=== PATIENT | male | born 1945 | race Caucasian/White ===

== ENCOUNTER 2018-11-27 09:49 | Day surgery (SDC) | payer BC, MEDICARE ==
[2018-11-23 15:51] VITALS: BMI 26.5
--- NOTE | 2018-11-26 09:18 | P.GSHP ---
History of Present Illness H&P Date: 11/27/18 CHIEF COMPLAINT: GERD HISTORY OF PRESENT ILLNESS: The patient is a 73-year-old male who presents reports gastroesophageal reflux disease. Upper endoscopy was offered for further evaluation and management. PAST MEDICAL HISTORY: Please see list. PAST SURGICAL HISTORY: Please see list. MEDICATIONS: Please see list. ALLERGIES: Please see list. SOCIAL HISTORY: No illicit drug use FAMILY HISTORY: No reports of Crohn disease or ulcerative colitis. REVIEW OF ORGAN SYSTEMS: CONSTITUTIONAL: No reports of fevers or chills. GI: Denies any blood in stools or constipation. PHYSICAL EXAM: VITAL SIGNS: Stable GENERAL: Well-developed and pleasant in no acute distress. HEENT: No scleral icterus. Extraocular movements grossly intact. Moist buccal mucosa. NECK: Supple without lymphadenopathy. CHEST: Unlabored respirations. Equal bilateral excursions. CARDIOVASCULAR: Regular rate and rhythm. Distal 2+ pulses. ABDOMEN: Soft, nondistended. MUSCULOSKELETAL: No clubbing, cyanosis, or edema. ASSESSMENT: 1. Gastroesophageal reflux disease PLAN: 1. Recommend proceeding with an upper endoscopy Past Medical History Past Medical History: No Reported History History of Any Multi-Drug Resistant Organisms: None Reported Past Surgical History: Hernia Repair Additional Past Surgical History / Comment(s): LEFT KNEE SURGERY, CATARACT SURGERY WITH IMPLANTS WITH IMPLANTS Past Anesthesia/Blood Transfusion Reactions: No Reported Reaction Smoking Status: Never smoker - Past Family History Mother Family Medical History: No Reported History Medications and Allergies Home Medications Medication Instructions Recorded Confirmed Type No Known Home Medications 11/23/18 11/23/18 History Allergies Allergy/AdvReac Type Severity Reaction Status Date / Time No Known Allergies Allergy Verified 11/23/18 15:38
[~2018-11-27 09:49] MED LIST: LACTATED RINGERS 1,000 ML IV SCH; LIDOCAINE 1% 20 ML VIAL (10MG/ML) FOR IV START INTRADERMA PRN
[2018-11-27 11:00] VITALS: RESP 16; TEMP 98
[2018-11-27] MEDS ORDERED: LIDOCAINE 1% INJ 10MG/ML (20 ML MDV) ONE (11:38)
[2018-11-27] MEDS ORDERED: PROPOFOL 10 MG/ML 20 ML VIAL IV ONE (11:38)
--- NOTE | 2018-11-27 12:13 | P.PCN ---
Date of Procedure: 11/27/18 Description of Procedure: PREOPERATIVE DIAGNOSIS: Colonoscopy screening, first Family history colon cancer, father POSTOPERATIVE DIAGNOSIS: Colonoscopy screening, first Family history colon cancer, father Severe sigmoid diverticulosis with stricture Tubular adenoma, sigmoid colon OPERATION: Colonoscopy to the ileocecal valve and appendiceal orifice. Colonoscopy with hot snare polypectomy SURGEON: Genie Herrmann MD. ANESTHESIA: MAC. INDICATIONS: The patient is a 73-year-old male who presents for his first colonoscopy screening. Benefits and risks were described and informed consent was obtained. DESCRIPTION OF PROCEDURE: The patient had undergone Gatorade, MiraLAX and Dulcolax prep. He had been brought into the operating room and laid in the left lateral decubitus position. After adequate intravenous sedation, the rectum was examined with 2% lidocaine jelly. No external hemorrhoids were encountered. The rectal tone was within normal limits. No lesions were palpated in the rectal vault. An Olympus colonoscope was advanced until the ileocecal valve and appendiceal orifice were clearly viewed. The prep was fair with visualization of the mucosal folds. The scope was removed with visualization of each mucosal fold. Severe scattered diverticulosis was encountered with stricture between 20 and 30 cm from the anal verge. At sigmoid colon, 4 mm colonic polyp was found and snare polypectomy. No evidence of focal colitis was found. Retroflexion of the scope demonstrated no internal hemorrhoids without active bleeding or inflammation. The colon was desufflated. The patient had tolerated the procedure well. Withdrawal time was over 6 minutes. FINDINGS: Aronchick preparation quality scale 2 (1-5) No internal hemorrhoids No external hemorrhoids No arteriovenous malformations Severe scattered diverticulosis was encountered with stricture between 20 and 30 cm from the anal verge Removal of 1 polyp: - Snare polypectomy 30 cm from the anal verge, 4 mm tubulovillous adenoma polyp, sigmoid colon No focal colitis. RECOMMENDATIONS: Recommend repeat colonoscopy in 3 years, 2021 for personal and familial risk history of colon cancer Plan - Discharge Summary Discharge Rx Participant: No New Discharge Prescriptions: No Action No Known Home Medications Discharge Medication List No Known Home Medications 11/23/18 [History] Follow up Appointment(s)/Referral(s): Genie Herrmann MD [STAFF PHYSICIAN] - 12/26/18 Patient Instructions/Handouts: Diverticulosis (DC), Colorectal Polyps (DC), Diverticulosis Diet (GEN) Activity/Diet/Wound Care/Special Instructions: Repeat colonoscopy 3 years, 2021 Discharge Disposition: HOME SELF-CARE
[2018-11-27 12:35] VITALS: BP 158/87; PULSE 55
== END 2018-11-27 12:45 | disposition home or self-care (01) ==
LOC: ORWHC2ENDO 09:49
PROVIDERS: ATTEND Surgery Plastic and Reconstructive Surgery
DX: Z12.11 Encounter for screening for malignant neoplasm of colon (principal); K63.5 Polyp of colon; K57.30 Diverticulosis of large intestine without perforation or abscess without bleeding; K56.699 Other intestinal obstruction unspecified as to partial versus complete obstruction
CPT/HCPCS: 88305; 45385; J2001; J2704

== ENCOUNTER → 2018-12-04 | Outpatient (CLI) | payer MEDICARE ==
--- NOTE | 2018-12-04 10:03 | CT ---
EXAMINATION TYPE: CT abdomen pelvis w con DATE OF EXAM: 12/04/2018 COMPARISON: None HISTORY: LLQ mass CT DLP: 953 mGycm Automated exposure control for dose reduction was used. TECHNIQUE: Helical acquisition of images from the lung bases through the pelvis have been completed. CONTRAST: Performed with Oral Contrast and with IV Contrast, patient injected with 100 mL of Isovue 300. FINDINGS: There is a small hiatal hernia present. There is a spigelian hernia on the left in the lowe r quadrant with extension of fat between the muscular layers. Multiple surgical clips are present in the left groin likely due to prior hernia repair LUNG BASES: Questionable minimal nodularity or inflammatory change posterior right lung base axial im age 7. AORTA: No significant abnormality is appreciated. LIVER/GB: Hypodense focus towards the dome posteriorly measures only 5 to 6 mm and likely represents a small cyst, gallbladder is unremarkable PANCREAS: No significant abnormality is seen. SPLEEN: No significant abnormality is seen. ADRENALS: No significant abnormality is seen. KIDNEYS: Large cortical cysts are exophytic at the lower poles of the kidneys measuring approximately 6.7 cm on the left and smaller 3.3 cm mid pole and then at the right the lower pole lesion measures 3.4 cm REPRODUCTIVE ORGANS: Prostate is mildly enlarged and shows associated calcifications. BOWEL: Soft tissue thickening along the region of the cecum, ascending colon is indeterminate, diffi cult to exclude a mucosal lesion. Diverticular change noted in the sigmoid colon. FREE AIR: No Free Air visible. ASCITES: None visible. PELVIC ADENOPATHY: None visualized. RETROPERITONEAL ADENOPATHY: No Retroperitoneal Adenopathy visible. URINARY BLADDER: Thickened wall could be due to chronic bladder outlet obstruction OSSEOUS STRUCTURES: No significant abnormality is seen. Degenerative disc changes are noted incident ally. IMPRESSION: HERNIAS DESCRIBED. DIVERTICULOSIS. ADDITIONAL NONSPECIFIC FINDINGS DESCRIBED ABOVE, CONSIDER BOWEL SURVEILLANCE IF THIS HAS NOT BEEN PERFORMED. POSTOP CHANGES.
== END | disposition home or self-care (01) ==
LOC: RADCTMAIN 07:26
PROVIDERS: ATTEND Surgery Plastic and Reconstructive Surgery
DX: K44.9 Diaphragmatic hernia without obstruction or gangrene (principal); K43.9 Ventral hernia without obstruction or gangrene; K57.90 Diverticulosis of intestine, part unspecified, without perforation or abscess without bleeding; N28.1 Cyst of kidney, acquired
CPT/HCPCS: 82565; 84520; 74177; 36415; Q9967

== ENCOUNTER → 2019-05-08 | Outpatient (CLI) | payer MEDICARE | END | disposition home or self-care (01) | LOC: LABWHC1 12:12 | PROVIDERS: ATTEND Surgery Plastic and Reconstructive Surgery | DX: Z01.818 Encounter for other preprocedural examination (principal) | CPT/HCPCS: 36415; 93005 ==

== ENCOUNTER 2021-02-15 11:01 | Emergency (ER) | payer MEDICARE ==
[2021-02-15 11:04] VITALS: BP 178/98; PULSE 65; RESP 16; TEMP 97.9
[2021-02-15] MEDS ORDERED: PROPARACAINE 0.5% OPHTH DROPS 15 ML BTL BOTH EYES STA (11:12)
[2021-02-15] MEDS ORDERED: FLUORESCEIN STRIPS 1 MG STRIP LEFT EYE ONE (11:12)
--- NOTE | 2021-02-15 11:34 | ED ---
Eye Problem HPI - General Chief complaint: Eye Problems Stated complaint: lt eye problem Time Seen by Provider: 02/15/21 11:06 Source: patient, RN notes reviewed Mode of arrival: ambulatory Limitations: no limitations - History of Present Illness Initial comments: Patient is a 75-year-old male that presents to the emergency department with a several day history of left eye irritation. He notes he was walking on the [employer] when he felt some debris hit his left eye. He notes that the medial aspect of his eye was red. He denied any change in vision pain. He notes that every once in a while it feels very mildly irritated. Patient denied any other complaints or issues. He denied pain with extraocular eye movement change in vision. - Related Data Previous Rx's Medication Instructions Recorded Erythromycin Ophth Oint [Romycin 1 applic BOTH EYES QID #15 gm 02/15/21 Ophth Oint] Allergies Allergy/AdvReac Type Severity Reaction Status Date / Time No Known Allergies Allergy Verified 11/27/18 10:57 Review of Systems ROS Statement: Those systems with pertinent positive or pertinent negative responses have been documented in the HPI. ROS Other: All systems not noted in ROS Statement are negative. Past Medical History Past Medical History: No Reported History History of Any Multi-Drug Resistant Organisms: None Reported Past Surgical History: Hernia Repair Additional Past Surgical History / Comment(s): LEFT KNEE SURGERY, CATARACT SURGERY WITH IMPLANTS WITH IMPLANTS Past Anesthesia/Blood Transfusion Reactions: No Reported Reaction Past Psychological History: No Psychological Hx Reported Smoking Status: Never smoker Past Alcohol Use History: Occasional Past Drug Use History: None Reported - Past Family History Mother Family Medical History: No Reported History General Exam Limitations: no limitations General appearance: alert, in no apparent distress Head exam: Present: atraumatic, normocephalic, normal inspection Eye exam: Present: normal appearance, PERRL, EOMI, other (Left eye medial aspects subconjunctival hemorrhage, no obvious foreign body. Staining and Wood lamp exam demonstrates no abrasion, laceration, ulcer.). Absent: scleral icterus, conjunctival injection, periorbital swelling Neck exam: Present: normal inspection Respiratory exam: Present: normal lung sounds bilaterally. Absent: respiratory distress, wheezes, rales, rhonchi, stridor Cardiovascular Exam: Present: regular rate, normal rhythm, normal heart sounds. Absent: systolic murmur, diastolic murmur, rubs, gallop, clicks Extremities exam: Present: normal inspection, full ROM, normal capillary refill. Absent: tenderness, pedal edema, joint swelling, calf tenderness Neurological exam: Present: alert, oriented X3 Psychiatric exam: Present: normal affect, normal mood Skin exam: Present: warm, dry, intact, normal color. Absent: rash Course Vital Signs 02/15/21 11:03 Temperature 97.9 F Pulse Rate 65 Respiratory 16 Rate Blood Pressure 178/98 O2 Sat by Pulse 96 Oximetry Medical Decision Making - Medical Decision Making 75-year-old male complaining of left eye redness and minimal irritation. Proparacaine, fluoroscene stain ordered. Upon examination there was no obvious laceration, abrasion, ulceration. Just medial aspects subconjunctival hemorrhage. Patient will be sent home with proparacaine drops, erythromycin ointment. Case discussed with Dr. Eddy, patient can discharge home with follow-up to his wholesale agronomist. Disposition Clinical Impression: Subconjunctival hemorrhage of left eye, Irritation of left eye Disposition: HOME SELF-CARE Condition: Stable Instructions (If sedation given, give patient instructions): Eye Foreign Body (ED) Additional Instructions: Please return to the Emergency Department if symptoms worsen or any other concerns. Follow-up with primary care in the next 1-2 days. Follow-up with wholesale agronomist in next 1-2 days. Use erythromycin ointment as prescribed. Use proparacaine drops 1-2 times daily for irritation. Is patient prescribed a controlled substance at d/c from ED?: No Referrals: None,Stated [Primary Care Provider] - 1-2 days Waldemar Manning MD [STAFF PHYSICIAN] - 1-2 days Time of Disposition: 11:33
== END 2021-02-15 11:46 | disposition home or self-care (01) ==
LOC: EC 11:01
DX: H11.32 Conjunctival hemorrhage, left eye (principal); X58.XXXA Exposure to other specified factors, initial encounter; Y93.01 Activity, walking, marching and hiking; Y92.481 Parking lot as the place of occurrence of the external cause
CPT/HCPCS: 99283

== ENCOUNTER → 2022-02-09 | Outpatient (CLI) | payer MEDICARE ==
[2022-02-09 14:11] LABS: HCT 40.8 % (39.6-50.0); HGB 12.9 g/dL (13.0-17.0); MCH 30.4 pg (27.0-32.0); MCHC 31.6 g/dL (32.0-37.0); NRBC Per 100 WBC 0 /100 WBCS (0.0-0.0); Platelet Count 224 X 10*3/uL (140-440); RBC 4.25 X 10*6/uL (4.40-5.60); RDW 14.6 % (11.5-14.5); WBC 6.12 X 10*3/uL (4.50-10.00)
[2022-02-09 14:54] LABS: African American GFR (CKD) 67.7 (60.0-200.0); Albumin 4.2 g/dL (3.8-4.9); Albumin/Globulin Ratio 1.68 (1.60-3.17); Anion Gap 9.8 mmol/L (10.00-18.00); BUN/Creat Ratio 20.25 Ratio (12.00-20.00); Blood Urea Nitrogen 24.3 mg/dL (9.0-27.0); Calcium 9.2 mg/dL (8.7-10.3); Carbon Dioxide 25.2 mmol/L (20.0-27.5); Globulin 2.5 g/dL (1.6-3.3); Non-African American GFR(CKD) 58.4 (60.0-200.0); Potassium 4.5 mmol/L (3.5-5.5); Total Bilirubin 0.4 mg/dL (0.30-1.20); Total Protein 6.7 g/dL (6.2-8.2)
== END | disposition home or self-care (01) ==
LOC: LABWHC1 08:40
DX: Z00.00 Encounter for general adult medical examination without abnormal findings (principal)
CPT/HCPCS: 36415; 80053; 82306; 85027

== ENCOUNTER 2023-02-05 11:36 | Emergency (ER) | payer MEDICARE ==
[2023-02-05 11:52] VITALS: RESP 18
[2023-02-05] MEDS ORDERED: LIDOCAINE 1% INJ 10MG/ML (30 ML VIAL-PF) SQ ONE (13:04)
[2023-02-05] MEDS ORDERED: DIPH,PERTUS(ACELL)TETVAC-LF 0.5 ML VIAL IM ONE (13:06)
[2023-02-05] MEDS ORDERED: cefTRIAXone 1,000 MG VIAL (IM USE) IM STA (13:50)
--- NOTE | 2023-02-05 13:55 | ED ---
General Adult HPI - General Chief complaint: Skin/Abscess/Foreign Body Stated complaint: Abscess on buttock Time Seen by Provider: 02/05/23 12:14 Source: patient Mode of arrival: ambulatory Limitations: no limitations - History of Present Illness Initial comments: 7-year-old male with a past medical history significant for hypertension presents to ED with a chief complaint of skin infection. Patient states approximately 2 days ago noted what he thought was a pimple on his right butt cheek. Since then notes that it has grown in size and has become more painful. Denies drainage. Associated subjective fevers at night. No other complaints. - Related Data Previous Rx's Medication Instructions Recorded Erythromycin Ophth Oint [Romycin 1 applic BOTH EYES QID #15 gm 02/15/21 Ophth Oint] Acetaminophen Tab [Tylenol] 500 mg PO Q6H #30 tablet 02/05/23 Cephalexin [Keflex] 500 mg PO Q6HR 7 Days #28 cap 02/05/23 Sulfamethox-Tmp 800-160Mg [Bactrim 1 each PO Q12HR 7 Days #14 tab 02/05/23 Ds] Allergies Allergy/AdvReac Type Severity Reaction Status Date / Time No Known Allergies Allergy Verified 02/05/23 11:52 Review of Systems ROS Statement: Those systems with pertinent positive or pertinent negative responses have been documented in the HPI. ROS Other: All systems not noted in ROS Statement are negative. Past Medical History Past Medical History: No Reported History History of Any Multi-Drug Resistant Organisms: None Reported Past Surgical History: Hernia Repair Additional Past Surgical History / Comment(s): LEFT KNEE SURGERY, CATARACT SURGERY WITH IMPLANTS WITH IMPLANTS Past Anesthesia/Blood Transfusion Reactions: No Reported Reaction Past Psychological History: No Psychological Hx Reported Smoking Status: Never smoker Past Alcohol Use History: Occasional Past Drug Use History: None Reported - Past Family History Mother Family Medical History: No Reported History General Exam Limitations: no limitations General appearance: alert, in no apparent distress Respiratory exam: Present: normal lung sounds bilaterally Cardiovascular Exam: Present: regular rate, normal rhythm GI/Abdominal exam: Present: soft Neurological exam: Present: alert, oriented X3 Psychiatric exam: Present: normal affect, normal mood Skin exam: Present: warm, dry, other (Approximately 5 x 5 cm abscess on the right buttocks, rated with surrounding warmth, erythema, and tenderness to palpation.) Course Vital Signs 02/05/23 11:50 Temperature 98.9 F Pulse Rate 78 Respiratory 18 Rate Blood Pressure 189/107 O2 Sat by Pulse 94 L Oximetry Procedures - Incision & Drainage Site: buttock (US Showed no large fluid pocket) Size (cm): 5 Anesthetic Used: lidocaine 1% Amount (mLs): 7 I&D Cleaning Method: Alcohol Wipe Needle Aspiration Performed?: Yes (Minimal amount of serous fluid obtained approximately 1.5 miles) Irrigation Performed?: No Culture Obtained?: No Patient Tolerated Procedure: well, no complications Medical Decision Making - Medical Decision Making Was pt. sent in by a medical professional or institution (, [facility], BARK PRESS OPERATOR, urgent care, hospital, or halfway...) When possible be specific @ -No Did you speak to anyone other than the patient for history (EMS, parent, family, police, friend...)? What history was obtained from this source @ -No Did you review nursing and triage notes (agree or disagree)? Why? @ -I reviewed and agree with nursing and triage notes Were old charts reviewed (outside hosp., previous admission, EMS record, old EKG, old radiological studies, urgent care reports/EKG's, halfway records)? Report findings @ -No old charts were reviewed Differential Diagnosis (chest pain, altered mental status, abdominal pain women, abdominal pain men, vaginal bleeding, weakness, fever, dyspnea, syncope, he adache, dizziness, GI bleed, back pain, seizure, CVA, palpatations, mental health, musculoskeletal)? @ -Cellulitis, MRSA, folliculitis. This is not meant to be an all-inclusive l ist EKG interpreted by me (3pts min.). @ -None X-rays interpreted by me (1pt min.). @ -None done CT interpreted by me (1pt min.). @ -None done U/S interpreted by me (1pt. min.). @ -Ultrasound performed bedside showed no large fluid collection. What testing was considered but not performed or refused? (CT, X-rays, U/S, labs)? Why? @ -None What meds were considered but not given or refused? Why? @ -None Did you discuss the management of the patient with other professionals (professionals i.e. VINAYAK Robbins, BARK PRESS OPERATOR, lab, RT, psych nurse, social security specialist, mobile unit assistant, teacher, bsa/aml compliance officer, skilled nursing case manager)? Give summary @ -No Was smoking cessation discussed for >3mins.? @ -No Was critical care preformed (if so, how long)? @ -No Were there social determinants of health that impacted care today? How? (Homelessness, low income, unemployed, alcoholism, drug addiction, transportation, low edu. Level, literacy, decrease access to med. care, fpc, rehab)? @ -No Was there de-escalation of care discussed even if they declined (Discuss DNR or withdrawal of care, Hospice)? DNR status @ -No What co-morbidities impacted this encounter? (DM, HTN, Smoking, COPD, CAD, Cancer, CVA, ARF, Chemo, Hep., AIDS, mental health diagnosis, sleep apnea, morbid obesity)? @ -HTN Was patient admitted / discharged? Hospital course, mention meds given and ro jason, prescriptions, significant lab abnormalities, going to OR and other pertinent info. @ -Discharge. Needle aspiration performed. Please see procedure note for further details. Tetanus updated. Provided 1 g ceftriaxone IM here and provided prescription for Keflex and Bactrim double strength along with additional prescription for Tylenol. Advised follow-up with PCP. Discussed return precautions with patient and family who verbalizes agreement. Undiagnosed new problem with uncertain prognosis? @ -No Drug Therapy requiring intensive monitoring for toxicity (Heparin, Nitro, Insulin, Cardizem)? @ -No Were any procedures done? @ -No Diagnosis/symptom? @ -Abscess Acute, or Chronic, or Acute on Chronic? @ -Acute Uncomplicated (without systemic symptoms) or Complicated (systemic symptoms)? @ -Uncomplicated Side effects of treatment? @ -No Exacerbation, Progression, or Severe Exacerbation? @ -No Poses a threat to life or bodily function? How? (Chest pain, [place], [place], pneumonia, PE, COPD, DKA, ARF, appy, cholecystitis, CVA, Diverticulitis, Homicidal, Suicidal, threat to staff... and all critical care pts) @ -No Disposition Clinical Impression: Abscess Disposition: HOME SELF-CARE Condition: Good Instructions (If sedation given, give patient instructions): Abscess (ED) Prescriptions: Sulfamethox-Tmp 800-160Mg [Bactrim Ds] 1 each PO Q12HR 7 Days #14 tab Cephalexin [Keflex] 500 mg PO Q6HR 7 Days #28 cap Acetaminophen Tab [Tylenol] 500 mg PO Q6H #30 tablet Is patient prescribed a controlled substance at d/c from ED?: No Referrals: Jerome Corrales DO [Primary Care Provider] - 1-2 days Time of Disposition: 13:49
[2023-02-05] MEDS ORDERED: ACET/COD 300 MG/30 MG STARTER PACK 6 TAB BTL PO STA (13:59)
[2023-02-05 14:09] VITALS: BP 169/87; PULSE 60; TEMP 98.3
== END 2023-02-05 14:09 | disposition home or self-care (01) ==
LOC: EC 11:36
DX: L02.219 Cutaneous abscess of trunk, unspecified (principal); Z23 Encounter for immunization
CPT/HCPCS: 90715; 99282; 96372; 90471; 10060; J2001; J0696

== ENCOUNTER 2023-06-11 19:55 | Emergency (ER) | payer MEDICARE ==
--- NOTE | 2023-06-11 20:26 | ED ---
General Adult HPI - General Chief complaint: Fever Stated complaint: Fever, vomiting Time Seen by Provider: 06/11/23 20:04 Source: patient, RN notes reviewed Mode of arrival: ambulatory Limitations: no limitations - History of Present Illness Initial comments: 78-year-old male presents to the emergency department with chief complaint of fever. Patient states that this started today. He reports that he took ibuprofen. He also admits to cough, rhinorrhea. He states that he had a sore throat yesterday which has since improved. He had one episode of vomiting prior to arrival. Denies abdominal pain. Reports normal urination and bowel movements. - Related Data Previous Rx's Medication Instructions Recorded Erythromycin Ophth Oint [Romycin 1 applic BOTH EYES QID #15 gm 02/15/21 Ophth Oint] Acetaminophen Tab [Tylenol] 500 mg PO Q6H #30 tablet 02/05/23 Cephalexin [Keflex] 500 mg PO Q6HR 7 Days #28 cap 02/05/23 Sulfamethox-Tmp 800-160Mg [Bactrim 1 each PO Q12HR 7 Days #14 tab 02/05/23 Ds] Allergies Allergy/AdvReac Type Severity Reaction Status Date / Time No Known Allergies Allergy Verified 06/11/23 20:02 Review of Systems ROS Statement: Those systems with pertinent positive or pertinent negative responses have been documented in the HPI. ROS Other: All systems not noted in ROS Statement are negative. Past Medical History Past Medical History: No Reported History History of Any Multi-Drug Resistant Organisms: None Reported Past Surgical History: Hernia Repair Additional Past Surgical History / Comment(s): LEFT KNEE SURGERY, CATARACT SURGERY WITH IMPLANTS WITH IMPLANTS Past Anesthesia/Blood Transfusion Reactions: No Reported Reaction Past Psychological History: No Psychological Hx Reported Smoking Status: Never smoker Past Alcohol Use History: Rare Past Drug Use History: None Reported - Past Family History Mother Family Medical History: No Reported History General Exam Limitations: no limitations General appearance: alert, in no apparent distress Head exam: Present: atraumatic, normocephalic, normal inspection Eye exam: Present: normal appearance, PERRL, EOMI. Absent: scleral icterus, conjunctival injection, periorbital swelling ENT exam: Present: normal exam, mucous membranes moist Neck exam: Present: normal inspection. Absent: tenderness, meningismus, lymphadenopathy Respiratory exam: Present: normal lung sounds bilaterally. Absent: respiratory distress, wheezes, rales, rhonchi, stridor Cardiovascular Exam: Present: regular rate, normal rhythm, normal heart sounds. Absent: systolic murmur, diastolic murmur, rubs, gallop, clicks GI/Abdominal exam: Present: soft, normal bowel sounds. Absent: distended, te nderness, guarding, rebound, rigid Extremities exam: Present: normal inspection, full ROM, normal capillary refill. Absent: tenderness, pedal edema, joint swelling, calf tenderness Back exam: Present: normal inspection Neurological exam: Present: alert, oriented X3 Psychiatric exam: Present: normal affect, normal mood Skin exam: Present: warm, dry, intact, normal color. Absent: rash Course Vital Signs 06/11/23 06/11/23 06/11/23 19:57 20:30 21:17 Temperature 99.0 F Pulse Rate 99 94 Respiratory 17 18 18 Rate Blood Pressure 167/115 169/95 O2 Sat by Pulse 95 96 Oximetry Medical Decision Making - Medical Decision Making Was pt. sent in by a medical professional or institution (Dr. PA, GUEST SERVICES ASSOCIATE, urgent care, hospital, or assisted...) When possible be specific @ -No Did you speak to anyone other than the patient for history (EMS, parent, family, police, friend...)? What history was obtained from this source @ -No Did you review nursing and triage notes (agree or disagree)? Why? @ -I reviewed and agree with nursing and triage notes Were old charts reviewed (outside hosp., previous admission, EMS record, old EKG, old radiological studies, urgent care reports/EKG's, assisted records)? Report findings @ -No old charts were reviewed Differential Diagnosis (chest pain, altered mental status, abdominal pain women, abdominal pain men, vaginal bleeding, weakness, fever, dyspnea, syncope, headache, dizziness, GI bleed, back pain, seizure, CVA, palpatations, mental health, musculoskeletal)? @ -Differential Fever: Pneumonia, viral URI, endocarditis, myocarditis, pericarditis, otitis, sinusitis, peritonsillar Abscess, retropharyngeal Abscess, epiglottitis, peritonitis, appendicitis, Mabel cystitis, diverticulitis, hepatitis, colitis, UTI, PID, TOA, pyelonephritis, prostatitis, epididymitis, meningitis, encephalitis, pulmonary embolism, CVA, thyroid storm, pancreatitis, adrenal crisis, cavernous sinus thrombosis, this is not meant to be an all-inclusive list. EKG interpreted by me (3pts min.). @ -None X-rays interpreted by me (1pt min.). @ -Chest x-ray shows no acute process CT interpreted by me (1pt min.). @ -None done U/S interpreted by me (1pt. min.). @ -None done What testing was considered but not performed or refused? (CT, X-rays, U/S, labs)? Why? @ -None What meds were considered but not given or refused? Why? @ -None Did you discuss the management of the patient with other professionals (professionals i.e. , PA, GUEST SERVICES ASSOCIATE, lab, RT, psych nurse, vp digital marketing social media and crm, maintenance worker, teacher, marketing and communications officer, case management coordinator)? Give summary @ -No Was smoking cessation discussed for >3mins.? @ -No Was critical care preformed (if so, how long)? @ -No Were there social determinants of health that impacted care today? How? (Homelessness, low income, unemployed, alcoholism, drug addiction, transportation, low edu. Level, literacy, decrease access to med. care, nursing home, rehab)? @ -No Was there de-escalation of care discussed even if they declined (Discuss DNR or withdrawal of care, Hospice)? DNR status @ -No What co-morbidities impacted this encounter? (DM, HTN, Smoking, COPD, CAD, Cancer, CVA, ARF, Chemo, Hep., AIDS, mental health diagnosis, sleep apnea, morbid obesity)? @ -None Was patient admitted / discharged? Hospital course, mention meds given and route, prescriptions, significant lab abnormalities, going to OR and other pertinent info. @ -Discharged. Patient presented emergency department with chief complaint of fever. He also admits to cough and congestion. Patient tested for Covid, influenza, RSV. COVID-19 positive. Chest x-ray shows no acute process. He is not having difficulty breathing. Offered antiviral medication which patient declined. Patient would like to be discharged home. Patient stable at time of discharge. Case discussed with Dr. Felix Undiagnosed new problem with uncertain prognosis? @ -No Drug Therapy requiring intensive monitoring for toxicity (Heparin, Nitro, Insulin, Cardizem)? @ -No Were any procedures done? @ -No Diagnosis/symptom? @ -COVID-19 Acute, or Chronic, or Acute on Chronic? @ -Acute Uncomplicated (without systemic symptoms) or Complicated (systemic symptoms)? @ -Uncomplicated Side effects of treatment? @ -No Exacerbation, Progression, or Severe Exacerbation? @ -No Poses a threat to life or bodily function? How? (Chest pain, [place], [place], pneumonia, PE, COPD, DKA, ARF, appy, cholecystitis, CVA, Diverticulitis, Homicidal, Suicidal, threat to staff... and all critical care pts) @ -No - Lab Data Lab Results 06/11/23 Range/Units 20:23 Influenza Type A (PCR) Not Detected (Not Detectd) Influenza Type B (PCR) Not Detected (Not Detectd) RSV (PCR) Not Detected (Not Detectd) SARS-CoV-2 (PCR) Detected A (Not Detectd) Disposition Clinical Impression: COVID-19 Disposition: HOME SELF-CARE Condition: Stable Instructions (If sedation given, give patient instructions): Fever in Adults (ED), COVID-19 (Coronavirus Disease 2019) (ED) Additional Instructions: Please follow up with your primary care doctor. Return to the emergency department for new or worsening symptoms. Is patient prescribed a controlled substance at d/c from ED?: No Referrals: Jerome Corrales DO [Primary Care Provider] - 1-2 days
[2023-06-11 20:35] VITALS: TEMP 99
--- NOTE | 2023-06-11 21:27 | XR ---
EXAMINATION TYPE: XR chest 2V DATE OF EXAM: 06/11/2023 8:29 PM CLINICAL INDICATION:Male, 78 years old with history of cough, fever; [facility] COMPARISON: None TECHNIQUE: XR chest 2V Frontal and lateral views of the chest. FINDINGS: Lines/Tubes: No indwelling lines are seen. Lungs/Pleura: There is no evidence of pleural effusion, focal consolidation, or pneumothorax. Mild b ibasilar stranding may represent scarring versus subsegmental atelectasis. Pulmonary vascularity: Unremarkable. Heart/mediastinum: Heart size appears within normal limits. Partially calcified mildly tortuous aorta . Mediastinum otherwise unremarkable. Musculoskeletal: No acute osseous pathology. Mild/moderate degenerative changes of the spine and shou lders. Other findings: None IMPRESSION: No acute cardiopulmonary disease/process.
[2023-06-11 21:29] VITALS: BP 169/95; PULSE 94; RESP 18
== END 2023-06-11 21:38 | disposition home or self-care (01) ==
LOC: EC 19:55
DX: U07.1 COVID-19 (principal)
CPT/HCPCS: 71046; 87636; 99284

== ENCOUNTER 2023-09-02 11:07 | Emergency (ER) | payer MEDICARE ==
[2023-09-02 11:36] VITALS: TEMP 98
--- NOTE | 2023-09-02 12:13 | XR ---
EXAMINATION TYPE: XR hand complete RT DATE OF EXAM: 09/02/2023 CLINICAL HISTORY: pain TECHNIQUE: Frontal, lateral and oblique images of the right hand are obtained. COMPARISON: None. FINDINGS: There is no acute fracture/dislocation evident. The joint spaces appear within normal limi ts. Dorsal soft tissue swelling. Moderate to Severe degenerative change first carpal metacarpal joint space. IMPRESSION: There is no acute fracture or dislocation ICD 10 NO FRACTURE, INITIAL EVALUATION
--- NOTE | 2023-09-02 12:17 | ED ---
Upper Extremity HPI - General Chief Complaint: Extremity Injury, Upper Stated Complaint: Right hand injury Time Seen by Provider: 09/02/23 11:14 Source: patient, RN notes reviewed Mode of arrival: ambulatory Limitations: no limitations - History of Present Illness Initial Comments: 78-year-old male presents emergency department with chief complaint of right hand injury. Patient states he was walking his dog yesterday states he fell yesterday. Patient has a small abrasion to his face denies headache, neck pain, any other injuries other than his right hand that is swollen, painful with movement. - Related Data Previous Rx's Medication Instructions Recorded Erythromycin Ophth Oint [Romycin 1 applic BOTH EYES QID #15 gm 02/15/21 Ophth Oint] Acetaminophen Tab [Tylenol] 500 mg PO Q6H #30 tablet 02/05/23 Cephalexin [Keflex] 500 mg PO Q6HR 7 Days #28 cap 02/05/23 Sulfamethox-Tmp 800-160Mg [Bactrim 1 each PO Q12HR 7 Days #14 tab 02/05/23 Ds] Allergies Allergy/AdvReac Type Severity Reaction Status Date / Time No Known Allergies Allergy Verified 09/02/23 11:23 Review of Systems ROS Statement: Those systems with pertinent positive or pertinent negative responses have been documented in the HPI. ROS Other: All systems not noted in ROS Statement are negative. Past Medical History Past Medical History: No Reported History History of Any Multi-Drug Resistant Organisms: None Reported Past Surgical History: Hernia Repair Additional Past Surgical History / Comment(s): LEFT KNEE SURGERY, CATARACT SURGERY WITH IMPLANTS WITH IMPLANTS Past Anesthesia/Blood Transfusion Reactions: No Reported Reaction Past Psychological History: No Psychological Hx Reported Smoking Status: Never smoker Past Alcohol Use History: Occasional Past Drug Use History: None Reported - Past Family History Mother Family Medical History: No Reported History General Exam Limitations: no limitations General appearance: alert, in no apparent distress Head exam: Present: atraumatic, normocephalic, normal inspection Eye exam: Present: normal appearance, PERRL, EOMI. Absent: scleral icterus, conjunctival injection, periorbital swelling ENT exam: Present: normal exam, normal oropharynx, mucous membranes moist Neck exam: Present: normal inspection, full ROM. Absent: tenderness, meningismus, lymphadenopathy Respiratory exam: Present: normal lung sounds bilaterally. Absent: respiratory distress, wheezes, rales, rhonchi, stridor Cardiovascular Exam: Present: regular rate, normal rhythm, normal heart sounds. Absent: systolic murmur, diastolic murmur, rubs, gallop, clicks Extremities exam: Present: other (Right hand significant swelling diffusely, neurovascular intact tenderness across the metacarpal region no wrist tenderness no proximal forearm tenderness) Course Vital Signs 09/02/23 09/02/23 11:21 12:35 Temperature 98 F 98 F Pulse Rate 60 65 Respiratory 20 18 Rate Blood Pressure 195/114 155/89 O2 Sat by Pulse 99 99 Oximetry Medical Decision Making - Medical Decision Making Was pt. sent in by a medical professional or institution (, PA, VIDEO GAME ANIMATOR, urgent care, hospital, or fci...) When possible be specific @ -No Did you speak to anyone other than the patient for history (EMS, parent, family, police, friend...)? What history was obtained from this source @ -No Did you review nursing and triage notes (agree or disagree)? Why? @ -I reviewed and agree with nursing and triage notes Were old charts reviewed (outside hosp., previous admission, EMS record, old EKG, old radiological studies, urgent care reports/EKG's, fci records)? Report findings @ -No old charts were reviewed Differential Diagnosis (chest pain, altered mental status, abdominal pain women, abdominal pain men, vaginal bleeding, weakness, fever, dyspnea, syncope, headache, dizziness, GI bleed, back pain, seizure, CVA, palpatations, mental health, musculoskeletal)? @ -[Fall, hand contusion, hand fracture EKG interpreted by me (3pts min.). @ -None X-rays interpreted by me (1pt min.). @ -[X-ray right hand shows no evidence of acute fracture or malalignment CT interpreted by me (1pt min.). @ -[None done U/S interpreted by me (1pt. min.). @ -None done What testing was considered but not performed or refused? (CT, X-rays, U/S, labs)? Why? @ -None What meds were considered but not given or refused? Why? @ -None Did you discuss the management of the patient with other professionals (professionals i.e. , PA, VIDEO GAME ANIMATOR, lab, RT, psych nurse, nursing home social worker, quality assurance supervisor final, teacher, marketing officer, caseworker protective services)? Give summary @ -No Was smoking cessation discussed for >3mins.? @ -No Was critical care preformed (if so, how long)? @ -No Were there social determinants of health that impacted care today? How? (Homelessness, low income, unemployed, alcoholism, drug addiction, transportation, low edu. Level, literacy, decrease access to med. care, detention, rehab)? @ -No Was there de-escalation of care discussed even if they declined (Discuss DNR or withdrawal of care, Hospice)? DNR status @ -No What co-morbidities impacted this encounter? (DM, HTN, Smoking, COPD, CAD, Cancer, CVA, ARF, Chemo, Hep., AIDS, mental health diagnosis, sleep apnea, morbid obesity)? @ -None Was patient admitted / discharged? Hospital course, mention meds given and route, prescriptions, significant lab abnormalities, going to OR and other pertinent info. @ -[Discharge patient presented after a fall x-rays are negative for acute fracture patient is discharged in stable condition if no improvement will follow-up with orthopedics Undiagnosed new problem with uncertain prognosis? @ -No Drug Therapy requiring intensive monitoring for toxicity (Heparin, Nitro, Insulin, Cardizem)? @ -No Were any procedures done? @ -No Diagnosis/symptom? @ -Right hand contusion Acute, or Chronic, or Acute on Chronic? @ -[Acute Uncomplicated (without systemic symptoms) or Complicated (systemic symptoms)? @ -Uncomplicated Side effects of treatment? @ -[No Exacerbation, Progression, or Severe Exacerbation? @ -No Poses a threat to life or bodily function? How? (Chest pain, [place], [place], pneumonia, PE, COPD, DKA, ARF, appy, cholecystitis, CVA, Diverticulitis, Homicidal, Suicidal, threat to staff... and all critical care pts) @ -No Disposition Clinical Impression: Sprain of right hand, Contusion, hand Disposition: HOME SELF-CARE Condition: Stable Instructions (If sedation given, give patient instructions): Hand Sprain (ED) Additional Instructions: Please return to the Emergency Department if symptoms worsen or any other concerns. Is patient prescribed a controlled substance at d/c from ED?: No Referrals: Jerome Corrales DO [Primary Care Provider] - 1-2 days Time of Disposition: 12:28
[2023-09-02 13:07] VITALS: BP 155/89; PULSE 65; RESP 18
== END 2023-09-02 12:38 | disposition home or self-care (01) ==
LOC: EC 11:07
DX: S63.91XA Sprain of unspecified part of right wrist and hand, initial encounter (principal); W19.XXXA Unspecified fall, initial encounter; Y93.K1 Activity, walking an animal
CPT/HCPCS: 99283

== ENCOUNTER → 2023-10-12 | Outpatient (CLI) | payer MEDICARE ==
--- NOTE | 2023-10-12 11:20 | XR ---
EXAMINATION TYPE: XR hand complete RT DATE OF EXAM: 10/12/2023 10:35 AM CLINICAL INDICATION:Male, 78 years old with history of S69.91XA INJURY RIGHT WRIST; [facility] COMPARISON: None TECHNIQUE: XR hand complete RT Frontal, lateral and oblique views were obtained. FINDINGS: Normal alignment of the visualized joints. No acute osseous pathology is identified. No e vidence of soft tissue swelling. Chronic appearing osseous fragment near the fifth digit proximal int erphalangeal joint. Multifocal degeneration changes with joint space narrowing and osteophyte formati on most pronounced at the interphalangeal joints.. IMPRESSION: 1. No acute osseous pathology. 2. 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
== END | disposition home or self-care (01) ==
LOC: RADXRMAIN 10:11
PROVIDERS: ATTEND Family Medicine
DX: M19.041 Primary osteoarthritis, right hand (principal); S69.91XA Unspecified injury of right wrist, hand and finger(s), initial encounter; X58.XXXA Exposure to other specified factors, initial encounter